=== PATIENT | male | born 1980 | race Caucasian/White ===

== ENCOUNTER 2024-08-19 08:36 | Day surgery (SDC) | payer BC, SELFPAY ==
[2024-08-19] MEDS: LACTATED RINGERS 1000ML 1,000 ML 25 ML IV (08:52)
[2024-08-19 08:53] VITALS: BMI 27.7
--- NOTE | 2024-08-19 08:57 | HMH.SCOPE ---
Procedure: Date: 08/19/24 Patient Date of :: 1980 Procedure Performed:: Colonoscopy Indications:: Bright red blood per rectum Constipation Performing Provider:: Fly Hewitt MD Referring Provider:: Dr. Russell Sedation:: Monitored anesthesia care Procedure:: After informed consent was obtained the patient was taken to the endoscopy suite. Sedation ensued after the patient was transferred to the left lateral decubitus position. Pulse, blood pressure, and oxygen saturation were monitored throughout the procedure. Digital rectal exam revealed no significant abnormality. The colonoscope was placed in position. The entire colon was evaluated. The colonoscope was carefully removed and the patient was transferred to recovery in stable condition. Please see findings and specimens below for detail. Findings:: Bowel preparation poor Mild hemorrhoidal cushions Specimens:: None Recommendations:: Gastroenterology consultation secondary to constipation. Fairly short-term repeat colonoscopy (6-12 months) with alternate/extended bowel preparation warranted. Repeat colonoscopy deferred to the gastroenterology service. Complications:: No immediate with the exception of poor bowel preparation Estimated blood obtained (mL): 0 Colonoscopy Component Colonoscopy Component Was a colonoscopy performed during today's procedure?: Yes Recommended follow up colonoscopy of at least 10 years?: No If no, follow up colonoscopy recommended in ___ years?: (See above) Reason for not recommending >/= 10 yr follow-up interval?: (See above)
[2024-08-19 08:59] VITALS: BP 141/96; PULSE 74; RESP 18; TEMP 36.6; O2SAT 100
--- NOTE | 2024-08-19 09:06 | P.PNANES_ITS ---
[facility] Disclaimer: The information contained in this section may have been updated after the patient was seen, as this information can be updated by other users. Medical History Hyperlipidemia Surgical History History of carpal tunnel release of both wrists History of nasal surgery Family History (Updated 08/19/24 @ 08:56 by Dee Albarado RN) Mother History of diabetes mellitus Father History of myocardial infarction Social History (Updated 08/19/24 @ 08:55 by Dee Albarado RN) Smoking Status: Never smoker alcohol intake: never substance use type: denies use current occupational status: employed Travel in the last 8 weeks: None [facility] Anesthesia Checklist Patient Identification Patient Identification: Arm Band, Family and Verbal (Name & ) Structural Data Admitted From: Home Planned Operative Procedure/s: Colonoscopy Consent for Planned Operative Procedure(s) Verified: Yes Verified Documents: Surgical Consent and History and Physical NPO Status Verified Time NPO: 03:00 Additional verifications Patient : No Anesthesia Reactions: No Cardiovascular Assessment Heart Sounds: S1 & S2 Pulse Rhythm: Irregular Airway Assessment Mallampati Score:: Class III (Very small mouth opening) C-Spine Mobility Assessed: Yes (FROM demonstrated) TMJ Mobility Assessed: Yes Dentition: Good Dentition (Nothing loose per pt.) Neurological Assessment Level of Consciousness: Awake, Alert, Appropriate and Follows Commands Hx Seizures: No Numbness or tingling in extremities: No Anesthesia Plan Anesthesia Risk discussed: Yes Anesthesia Plan: Verified ASA Class: II Anesthesia Type: MAC
[2024-08-19 09:10] VITALS: O2SAT 100
[2024-08-19 09:33] VITALS: BP 101/66; PULSE 82; RESP 14; TEMP 36.3; O2SAT 95
[2024-08-19 09:43] VITALS: BP 102/68; PULSE 74; RESP 16; O2SAT 94
[2024-08-19 09:53] VITALS: BP 110/68; PULSE 86; RESP 18; O2SAT 99
[2024-08-19 10:02] VITALS: BP 108/77; PULSE 71; RESP 18; O2SAT 99
== END 2024-08-19 10:02 | disposition home or self-care (01) ==
PROVIDERS: PCP Family Medicine; Visit Provider Surgery
PROC: 0DJD8ZZ Inspection of Lower Intestinal Tract, Via Natural or Artificial Opening Endoscopic (ICD-10-PCS; CPT 45378; principal; 2024-08-19 09:30)
DX: K62.5 Hemorrhage of anus and rectum (principal); K59.00 Constipation, unspecified; K64.9 Unspecified hemorrhoids
CPT/HCPCS: 45378; J7120

== ENCOUNTER 2024-12-11 08:14 | Day surgery (SDC) | payer BC, SELFPAY ==
[2024-12-11 08:33] VITALS: BP 143/87; PULSE 58; RESP 16; TEMP 36.3; O2SAT 98; BMI 28.3
[2024-12-11] MEDS: LACTATED RINGERS 1000ML 1,000 ML 25 ML IV (08:33)
--- NOTE | 2024-12-11 09:05 | EXP.ANES.CKL ---
[facility] Disclaimer: The information contained in this section may have been updated after the patient was seen, as this information can be updated by other users. Medical History Hyperlipidemia Surgical History H/O colonoscopy History of carpal tunnel release of both wrists History of nasal surgery Family History Mother History of diabetes mellitus Father History of myocardial infarction Social History Smoking Status: Never smoker alcohol intake: never substance use type: denies use current occupational status: employed Travel in the last 8 weeks: None Have you lived/traveled outside [place] in past 30 days?: No Contact w/someone who lives/traveled outside [place] past 30 days?: No Exposure to someone with infectious disease in past 14 days?: No Do you have a fever (greater than 100.4 F or 38 C)?: No Have you tested positive for COVID-19: No Exposed to someone with COVID-19 in past 14 days?: No Do you have a sore throat?: No Do you have a cough?: No Do you have any weakness?: No Do you have any diarrhea?: No Are you experiencing any unusual bleeding?: No Do you have any muscle aches/pain?: No Do you have any abdominal pain?: No Are you experiencing loss of taste or smell?: No [facility] Anesthesia Checklist Patient Identification Patient Identification: Arm Band and Verbal (Name & ) Structural Data Admitted From: Home Planned Operative Procedure/s: Colonoscopy Consent for Planned Operative Procedure(s) Verified: Yes Verified Documents: Surgical Consent and History and Physical NPO Status Verified Time NPO: 00:00 Additional verifications Anesthesia Reactions: No Airway Assessment Mallampati Score:: Class IV C-Spine Mobility Assessed: Yes TMJ Mobility Assessed: Yes Dentition: Good Dentition Neurological Assessment Level of Consciousness: Awake Hx Seizures: No Numbness or tingling in extremities: No Anesthesia Plan Anesthesia Risk discussed: Yes Anesthesia Plan: Verified ASA Class: II Anesthesia Type: MAC
[2024-12-11 09:53] VITALS: O2SAT 99
--- NOTE | 2024-12-11 09:56 | P.HP_ITS ---
History of Present Illness *Admission Date: 12/11/24 *Reason for visit:: Bright red rectal bleeding constipation/incomplete def ecation *History of present illness: Mr. Strong is a 44-year-old gentleman who is here for diagnostic colonoscopy secondary to some frequent rectal bleeding that has improved and constipation. The examination is deemed medically necessary for colonoscopy. The patient has been seen, interviewed and examined prior to the procedure by both myself and the anesthesia provider. [facility] Disclaimer: The information contained in this section may have been updated after the patient was seen, as this information can be updated by other users. Medical History Hyperlipidemia Surgical History H/O colonoscopy History of carpal tunnel release of both wrists History of nasal surgery Family History Mother History of diabetes mellitus Father History of myocardial infarction Social History Smoking Status: Never smoker alcohol intake: never substance use type: denies use current occupational status: employed Travel in the last 8 weeks: None Have you lived/traveled outside [place] in past 30 days?: No Contact w/someone who lives/traveled outside [place] past 30 days?: No Exposure to someone with infectious disease in past 14 days?: No Do you have a fever (greater than 100.4 F or 38 C)?: No Have you tested positive for COVID-19: No Exposed to someone with COVID-19 in past 14 days?: No Do you have a sore throat?: No Do you have a cough?: No Do you have any weakness?: No Do you have any diarrhea?: No Are you experiencing any unusual bleeding?: No Do you have any muscle aches/pain?: No Do you have any abdominal pain?: No Are you experiencing loss of taste or smell?: No Review of Systems Review of Systems Review of systems (narrative): Negative *Cardiovascular Comments: Negative *Gastrointestinal Comments: Negative *Genitourinary Comments: Negative *Musculoskeletal Comments: Negative *Neurologic Comments: Negative Meds Home Medications and Allergies Home Medications ?Medication ?Instructions ?Recorded ?Confirmed ?Type escitalopram oxalate 20 mg tablet 20 mg PO DAILY #90 tabs 05/12/24 12/11/24 Rx (Lexapro) fluticasone propionate 50 2 spray intranasal BID #16 grams 05/12/24 12/11/24 Rx mcg/actuation nasal spray,suspension rosuvastatin 10 mg tablet 10 mg PO DAILY #90 tabs 05/12/24 12/11/24 Rx New Prescriptions to Start Prescriptions: Allergies Allergy/AdvReac Type Severity Reaction Status Date / Time No Known Allergies Allergy Verified 09/30/24 09:22 Exam Data for Last 24 hours Vital signs and Labs for Last 24 Hours: Temp Pulse Resp BP Pulse Ox O2 Del Method O2 Flow Rate 97.4 F L 58 L 16 143/87 H 98 Nasal Cannula 5 12/11/24 08:33 12/11/24 08:33 12/11/24 08:33 12/11/24 08:33 12/11/24 08:33 12/11/24 09:53 12/11/24 09:53 I & O for Last 24 hours: Intake & Output 12/08/24 12/09/24 12/10/24 12/11/24 23:59 23:59 23:59 23:59 Weight 215 lb *Routine HEENT Exam Head: Present normocephalic Eye: Present EOMI and PERRL ENT: Present mucous membranes moist *Routine Neck Exam Neck: Present supple *Routine Respiratory Exam Respiratory: Present CTA bilaterally *Routine Cardiovascular Exam Cardiovascular: Present RRR *Routine Abdominal Exam Abdominal: Present soft and normoactive bowel sounds; Absent tenderness *Routine Rectal Exam Rectal:: deferred *Routine Genitalia Exam Genitalia:: deferred *Routine Extremities Exam Extremities: Absent cyanosis, clubbing or edema *Routine Skin Exam Skin: Present warm; Absent rash *Routine Neurological Exam Neurological: Present alert and oriented X3 Assessment and Plan *Assessment and plan (1) Internal bleeding hemorrhoids: Status: Acute Category: Medical Code(s): K64.8 - Other hemorrhoids (2) Incomplete defecation: Status: Acute Category: Medical Code(s): R15.0 - Incomplete defecation (3) Bilateral lower abdominal discomfort: Status: Acute Category: Medical Code(s): R10.31 - Right lower quadrant pain; R10.32 - Left lower quadrant pain (4) Constipation: Status: Acute Category: Medical Code(s): K59.00 - Constipation, unspecified (5) Rectal bleeding: Status: Acute Category: Medical Code(s): K62.5 - Hemorrhage of anus and rectum Plan A/P: 1. Rectal bleeding with incomplete defecation is the preprocedural diagnosis. The patient will be anesthetized/sedated using MAC sedation. The patient has been seen and examined. Cardiac and lung assessment prior to the examination is stable. Proceed with planned diagnostic colonoscopy
--- NOTE | 2024-12-11 09:58 | P.PCN_ITS ---
[facility] Procedure Note Date: 12/11/24 Time: 10:10 Procedure Note:: Colonoscopy Procedure Report: Colonoscopy with cold snare polypectomy and hemorrhoid band ligation Endoscopist: Ronn Beyer II, MD Referring physician: Krystian Russell MD Date of Procedure: December 11, 2024 Equipment: Olympus 190 variable stiffness pediatric colonoscope Sedation: MAC sedation Indication: Mr. Strong is a 44-year-old gentleman who had seen me in the office in September 2024 and was having blood with almost every other bowel movement but primarily on the toilet tissue. It was bright red in nature. The patient also was struggling with constipation, bloating and lower abdominal discomfort. It was hard for him to pass flatus and he would get vagal symptoms with diaphoresis, lightheadedness and syncope. His symptoms would improve with passage of gas or bowel movement. He did have an attempted colonoscopy in July 2024 but this was poorly prepped and was aborted. I had recommended that he use MiraLAX plus Citrucel daily along with Perdiem as needed. He has done much better and has had very little rectal bleeding since then. He reports no weight loss or family history of colon cancer. Procedure: Prior to the procedure, a history and physical exam was performed, and patient's medications and allergies were reviewed. The risks, benefits and alternatives of the sedation and procedure were discussed with the patient. All questions were answered and informed consent was obtained. The patient was brought to the procedure room. Patient identification and proposed procedure were verified by the physician and the nurse. The patient was placed in a left lateral decubitus position and the scope was passed under direct vision. Throughout the procedure, the patient's blood pressure, pulse, and oxygen saturations were monitored continuously. The colonoscopy was accomplished without difficulty. The patient tolerated the procedure well. Findings: On digital rectal examination there was normal rectal tone. There were no external hemorrhoids. There was some internal hemorrhoidal prolapse. The prostate was 2+, smooth, soft, symmetric without nodules. The colonoscope was introduced through the anal canal to the rectum and advanced to the cecum. The ileocecal valve and appendiceal orifice were identified. The scope was advanced a short distance into the ileum which appeared grossly normal. The scope was then withdrawn into the colon. There was a single 3 to 4 mm polyp in the cecum removed via cold snare polypectomy. The remaining cecum, ascending, transverse, descending, sigmoid and rectum were grossly normal. There were no mucosal abnormalities identified. Upon retroflexion within the rectum there were grade 2-3 internal hemorrhoids. 3 columns of hemorrhoids were banded using 3 bands with excellent ligation effect. The preparation was excellent throughout with [place] Preparation Score of 9. The cecal time was 12 minutes. Impression: 1. Diminutive 3 to 4 mm cecal polyp 2. Grade 2-3 internal hemorrhoids status post band ligation x 3 Plan: I will follow-up the polyp histology and recommend repeat surveillance colonoscopy again in 7 years if the polyp is adenomatous. I would continue the fiber bowel regimen (combined MiraLAX plus Citrucel mixed together every morning) on a maintenance basis. I will discuss the findings with the patient and family.
[2024-12-11 10:19] VITALS: BP 112/73; PULSE 77; RESP 16; TEMP 36.3; O2SAT 94
[2024-12-11 10:29] VITALS: BP 117/78; PULSE 63; RESP 16; O2SAT 97
[2024-12-11 10:39] VITALS: BP 130/70; PULSE 60; RESP 18; O2SAT 98
[2024-12-11 10:49] VITALS: BP 137/90; PULSE 56; RESP 18; O2SAT 100
== END 2024-12-11 10:58 | disposition home or self-care (01) ==
PROVIDERS: PCP Family Medicine; Visit Provider Internal Medicine Gastroenterology
PROC: (CPT 45385; principal; 2024-12-11 09:30)
DX: R15.0 Incomplete defecation (principal); R10.31 Right lower quadrant pain; K64.8 Other hemorrhoids; R10.32 Left lower quadrant pain; K62.5 Hemorrhage of anus and rectum; K63.5 Polyp of colon
CPT/HCPCS: 45385; 45398; C1889; J7120